=== PATIENT | male | born 2005 | race African-American/Black ===

== ENCOUNTER 2024-06-17 09:54 | Emergency (ER) | payer SELFPAY ==
[~2024-06-17] VITALS: Ht 154.9 cm; Wt 91.0 kg
[2024-06-17 11:07] VITALS: BP 142/91; PULSE 71; RESP 18; TEMP 98.2; O2SAT 100
[2024-06-17] MEDS: ACETAMINOPHEN 500 MG TAB PO ONE (12:06)
[2024-06-17] MEDS ORDERED: BACL10TA PO (12:07)
[2024-06-17] MEDS ORDERED: IBUP-1456 PO (12:07)
== END 2024-06-17 12:12 | disposition home or self-care (01) ==
LOC: EDBD 09:54 → ER 09:54
DX: S16.1XXA Strain of muscle, fascia and tendon at neck level, initial encounter (principal); S29.012A Strain of muscle and tendon of back wall of thorax, initial encounter; Z79.899 Other long term (current) drug therapy; V89.2XXA Person injured in unspecified motor-vehicle accident, traffic, initial encounter; Y93.I9 Activity, other involving external motion; Y92.488 Other paved roadways as the place of occurrence of the external cause; Y99.8 Other external cause status
CPT/HCPCS: 72040; 72070

== ENCOUNTER 2024-10-05 12:54 | Emergency (ER) | payer MEDICAID ==
[~2024-10-05] VITALS: Ht 185.4 cm; Wt 95.5 kg
[~2024-10-05 12:54] MED LIST: BACL10TA PO; IBUP-1456 PO
--- NOTE | 2024-10-05 14:08 | ED.PDOC ---
Altered Mental Status HPI Comments 19 year old male brought in by mother presents to the ED with chief complaint of ALOC. Mother reports that the patient started to experience confusion with associated non-verbal communication, inability to answer questions, and altered behavior since 5 days ago. Mother relays that she believes the patient may have taken some synthetic marijuana and is concerned as the patient has also stopped eating and drinking, appearing dehydrated. Mother states that she was referred to the crisis center by her campus administrator, however, the crisis center referred the patient to be seen in the ED due to the patient not being able to sign his own forms. Mother notes patient is able to follow commands and understands things being told to him, but he is unable to communicate back verbally and is generally confused. Mother denies any N/V/D, abdominal pain, dizziness, SOB, headache, or fever. Chief Complaint: ALOC Time Seen by MD: 14:03 Primary Care Provider: DENIES Reviewed Notes: Nurses Notes, Medications, Allergies Allergies: Coded Allergies: NO KNOWN ALLERGIES (Unverified , 06/17/24) Home Meds Active Scripts Baclofen (Baclofen) 10 Mg Tab, 10 MG PO BID, #20 TAB Prov:GENESIS HOWELL 06/17/24 Ibuprofen (Ibuprofen) 800 Mg Tab, 1 TAB PO TID, #30 TAB Prov:GENESIS HOWELL 06/17/24 Information Source: Patient, Relative (Mother) Mode of Arrival: Ambulatory Severity: Severe Timing: Days Duration: Since onset Prehospital treatment: None Quality: Change in Behavior, Confusion, Not Eating, Other (Non-verbal) Recent: Medication/Drug Abuse History of: None Past Medical History PAST MEDICAL HISTORY: Denies Surgical History: Denies all surgeries Family History Family History: Reviewed,noncontributory to illness Social History Smoker: Non-Smoker Alcohol: Denies ETOH Use Drugs: Marijuana Lives In: Home Constitutional: denies: chills, diaphoresis, fatigue, fever, malaise, sweats, weakness, others EENTM: denies: blurred vision, double vision, ear bleeding, ear discharge, ear drainage, ear pain, ear ringing, eye pain, eye redness, hearing loss, mouth pain, mouth swelling, nasal discharge, nose bleeding, nose congestion, nose pain, photophobia, tearing, throat pain, throat swelling, voice changes, others Respiratory: denies: cough, hemoptysis, orthopnea, SOB at rest, shortness of breath, SOB with excertion, stridor, wheezing, others Cardiovascular: denies: chest pain, dizzy spells, diaphoresis, Dyspnea on exertion, edema, irregular heart beat, left arm pain, lightheadedness, palpitations, PND, syncope, others Gastrointestinal: denies: abdomen distended, abdominal pain, blood streaked bowels, constipated, diarrhea, dysphagia, difficulty swallowing, hematemesis, melena, nausea, poor appetite, poor fluid intake, rectal bleeding, rectal pain, vomiting, others Genitourinary: denies: burning, dysuria, flank pain, frequency, hematuria, incontinence, penile discharge, penile sore, pain, testicle pain, testicle swelling, urgency, others Neurological: reports: others (Non-verbal, Confused); denies: dizziness, fainting, headache, left sided numbness, left sided weakness, numbness, paresthesia, pre-existing deficit, right sided numbness, right sided weakness, seizure, speech problems, tingling, tremors, weakness Musculoskeletal: denies: back pain, gout, joint pain, joint swelling, muscle pain, muscle stiffness, neck pain, others Integumetry: denies: bruises, change in color, change in hair/nails, dryness, laceration, lesions, lumps, rash, wounds, others Allergic/Immunocompromised: denies: Difficulty Healing, Frequent Infections, Hives, Itching, others Hematologic/Lymphatic: denies: anemia, blood clots, easy bleeding, easy bruising, swollen glands, others Endocrine: denies: excessive hunger, excessive sweating, excessive thirst, excessive urination, flushing, intolerance to cold, intolerance to heat, unexplained weight gain, unexplained weight loss, others Psychiatric: denies: anxiety, bipolar disorder, depression, hopeless, panic disorder, schizophrenia, sleepless, suicidal, others All Other Systems: Reviewed and Negative Physical Exam General Appearance: No Apparent Distress HEENT: PERRL/EOMI Neck: Full Range of Motion, Normal Inspection Respiratory: Lungs Clear, No Accessory Muscle Use, No Respiratory Distress, Normal Breath Sounds Cardiovascular: No Edema, No JVD, Regular Rate/Rhythm Breast Exam: Deferred Gastrointestinal: Non Tender, Soft Genitalia: Deferred Pelvic: Deferred Rectal: Deferred Extremities: Normal inspection, Normal range of motion, Non-tender, No pedal edema Neurologic: Alert (Nonverbal with me. Follows commands. Provides 1-2 word answers to mother.), No Motor Deficits Cerebellar Function: NOT DONE Reflexes: NOT DONE Skin: Dry, Normal Color, Warm Lymphatic: NOT DONE EKG EKG : Comments Sinus with sinus arrhythmia, rate 88, normal intervals, normal axis, possible old anteroseptal infarct, no ST/T changes. Was a procedure done? Was a procedure done?: No Differential Diagnosis (ALOC) Differential Diagnosis: Dehydration, Encephalopathy, Drug Overdose, ETOH Intoxication, Other (Psychosis, among others) X-Ray, Labs, Meds, VS Vital Signs Date Time Temp Pulse Resp B/P (MAP) Pulse Ox O2 Delivery O2 Flow Rate FiO2 10/05/24 20:40 72 15 129/79 (96) 97 10/05/24 19:30 75 15 99 Room Air* 0 21 10/05/24 19:30 98.4 71 25 132/71 (91) 97 98.4 10/05/24 18:00 89 17 142/90 (107) 97 10/05/24 17:00 82 12 137/74 (95) 99 10/05/24 16:05 89 10/05/24 16:00 88 24 139/88 (105) 98 10/05/24 15:10 75 15 99 Room Air* 0 21 10/05/24 15:00 74 15 142/82 (102) 97 10/05/24 14:54 97.8 75 15 135/82 (99) 99 97.8 10/05/24 14:02 97.5 75 18 133/101 (112) 100 97.5 10/05/24 14:02 75 18 100 Room Air 10/05/24 13:09 88 10/05/24 13:05 97.9 82 18 146/92 (110) 100 Lab Test 10/05/24 16:11 10/05/24 13:58 Range/Units Urine Color Yellow Yellow Urine Clarity Clear Clear Urine pH 7.0 5.0-9.0 Urine Specific [place] 1.025 1.001-1.035 Urine Protein Negative Negative Urine Ketones 3+ H Negative Urine Blood Negative Negative /uL Urine Nitrite Negative Negative Urine Bilirubin Negative Negative Urine Urobilinogen 8 H Negative mg/dL Urine Leukocyte Esterase Negative Negative /uL Urine RBC 2 0 - 3 /hpf Urine WBC 1 0 - 3 /hpf Urine Squamous Epithelial Cells None seen <5 /hpf Urine Bacteria None seen None Seen /hpf Urine Glucose Normal Normal mg/dL Urine Opiates Screen Neg NEGATIVE Urine Fentanyl Screen Neg NEGATIVE Urine Barbiturates Screen Neg NEGATIVE Urine Phencyclidine Screen Neg NEGATIVE Urine Amphetamines Screen Neg NEGATIVE Urine Benzodiazepines Screen Neg NEGATIVE Urine Cocaine Screen Neg NEGATIVE Urine Cannabinoids Screen Pos NEGATIVE White Blood Count 5.2 4.4-10.8 10^3/uL Red Blood Count 5.28 4.5-5.90 10^6/uL Hemoglobin 15.1 13.5-17.5 g/dL Hematocrit 44.5 41.0-53.0 % Mean Corpuscular Volume 84.4 80.0-100.0 fL Mean Corpuscular Hemoglobin 28.5 28.0-32.0 pg Mean Corpuscular Hemoglobin Concent 33.8 32.0-36.0 g/dL Red Cell Distribution Width 13.6 11.8-14.3 % Platelet Count 215 140-450 10^3/uL Mean Platelet Volume 9.2 6.9-10.8 fL Neutrophils (%) (Auto) 66.5 37.0-80.0 % Lymphocytes (%) (Auto) 17.9 10.0-50.0 % Monocytes (%) (Auto) 15.1 H 0.0-12.0 % Eosinophils (%) (Auto) 0.2 0.0-7.0 % Basophils (%) (Auto) 0.3 0.0-2.0 % Neutrophils # (Auto) 3.5 1.6-8.6 10 ^3/uL Lymphocytes # (Auto) 0.9 0.4-5.4 10 ^3/uL Monocytes # (Auto) 0.8 0-1.3 10 ^3/uL Eosinophils # (Auto) 0 0-0.8 10 ^3/uL Basophils # (Auto) 0 0-0.2 10 ^3/uL Nucleated Red Blood Cells 0.2 % Sodium Level 139 136-145 mmol/L Potassium Level 3.4 L 3.5-5.1 mmol/L Chloride Level 103 98-107 mmol/L Carbon Dioxide Level 26 20-31 mmol/L Anion Gap 10 5-15 Blood Urea Nitrogen 11 9-23 mg/dL Creatinine 1.20 0.700-1.30 mg/dL Glomerular Filtration Rate Calc 88 >90 mL/min BUN/Creatinine Ratio 9.2 L 10.0-20.0 Serum Glucose 85 74-106 mg/dL Calcium Level 10.3 8.7-10.4 mg/dL Total Bilirubin 1.0 0.2-1.0 mg/dL Aspartate Amino Transferase (AST) 32 13-40 U/L Alanine Aminotransferase (ALT) 38 7-40 U/L Alkaline Phosphatase 63 46-116 U/L Total Protein 7.3 5.7-8.2 g/dL Albumin 4.5 3.2-4.8 g/dL Salicylates Level < 3.0 -30 mg/dL Acetaminophen Level < 2.0 L 10.0-20.0 UG/ML Plasma/Serum Blood Alcohol < 3.0 <10 mg/dL Current Medications Medications (Trade) Dose Ordered Sig/Sophy Route Start Time Stop Time Status Last Admin Sodium Chloride 2,000 ml @ 1,000 mls/hr Q2H ONCE IV 10/05/24 14:00 10/05/24 15:59 DC 10/05/24 14:35 Potassium Chloride (Klor-Con Tablet) 40 meq ONCE ONCE PO 10/05/24 15:45 10/05/24 16:31 DC 10/05/24 16:45 X-Ray, Labs, Meds, VS Comment 19-year-old male with no significant past medical history brought in by mother for evaluation of confusion, decreased p.o. intake, and sudden decrease in verbal communication. Mother expresses concern that the patient's symptoms are due to synthetic marijuana or other drug use. Vitals remarkable for BP 146/92 Exam remarkable for nonverbal status with me. Patient does communicate with mother with 1 to two-word sentences. Patient able to follow commands. EKG sinus rhythm, sinus arrhythmia, no ST/T changes CBC, CMP, Tylenol, salicylate, alcohol level remarkable for potassium 3.4, no other abnormality of acute significance Urine drug screen and UA pending Patient treated with the following in the ED: 1 L 0.9 normal saline IV bolus, KCl 40 mEq p.o. Plan is for tele psych evaluation. Disposition will be per tele psych recommendations. 1830: Patient is medically cleared at this time and ready for tele psych evaluation. While awaiting psych evaluation, patient became restless. He was still able to answer yes or no questions. He answered no when asked if he felt suicidal or homicidal. He did not answer when asked if he was having auditory or visual hallucinations. Patient's mother was with him during his entire stay in the ED, and stated she did not want to wait with him any longer for tele psych evaluation. Patient is not currently on a hold, and also states he does not want to stay for psych evaluation. Patient and his mother signed out against medical advice. Patient's mother states she would like to take him for outpatient psychiatric evaluation and is comfortable taking him home. Patient and patient's mother were advised regarding the risks of leaving prior to psychiatric evaluation including persistent or worsening symptoms. They expressed understanding and insisted on leaving against medical advice. Time of 1ST Reevaluation: 15:03 Reevaluation 1ST: Unchanged Patient Education/Counseling: Diagnosis, Treatment Family Education/Counseling: Diagnosis, Treatment Departure 1 Departure Time of Disposition: 16:37 Impression: Primary Impression: Altered mental status Qualified Codes: R41.82 - Altered mental status, unspecified Disposition: 07 LEFT AGAINST MEDICAL ADVICE Condition: Fair Discharged With: Relative (Mother) Critical Care Note Critical Care Time?: No Stability Stability form required: No Heart Score Heart Score: Heart Score Response (Comments) Value History N/A 0 EKG N/A 0 Age N/A 0 Risk Factors N/A 0 Troponin N/A 0 Total 0 I personally scribed for MERCED ADAMS MD ([email or web address]) on 10/05/24 at 14:0 8. Electronically submitted by Abhinav Rubin ([email or web address]). I personally scribed for MERCED ADAMS MD ([email or web address]) on 10/05/24 at 18:40. Electronically submitted by Abhinav Rubin ([email or web address]). MERCED ADAMS MD Oct 05, 2024 14:08
[2024-10-05 14:24] LABS: Basophils # (auto) 0 10 ^3/uL (0-0.2); Basophils % (auto) 0.3 % (0.0-2.0); Eosinophils # (auto) 0 10 ^3/uL (0-0.8); Eosinophils % (auto) 0.2 % (0.0-7.0); Hematocrit 44.5 % (41.0-53.0); Hemoglobin 15.1 g/dL (13.5-17.5); Lymphocytes # (auto) 0.9 10 ^3/uL (0.4-5.4); Lymphocytes % (auto) 17.9 % (10.0-50.0); Mean Corpuscular Hemoglobin 28.5 pg (28.0-32.0); Mean Corpuscular Hgb Conc. 33.8 g/dL (32.0-36.0); Mean Corpuscular Volume 84.4 fL (80.0-100.0); Monocytes # (auto) 0.8 10 ^3/uL (0-1.3); Monocytes % (auto) 15.1 % (0.0-12.0); Neutrophils # (auto) 3.5 10 ^3/uL (1.6-8.6); Neutrophils % (auto) 66.5 % (37.0-80.0); Nucleated Red Blood Cells % 0.2 %; Platelet Count (auto) 215 10^3/uL (140-450); Red Blood Cells 5.28 10^6/uL (4.5-5.90); Red Cell Distribution Width 13.6 % (11.8-14.3); White Blood Cell 5.2 10^3/uL (4.4-10.8)
[2024-10-05 14:34] LABS: Alanine Aminotransferase 38 U/L (7-40); Albumin 4.5 g/dL (3.2-4.8); Alkaline Phosphatase 63 U/L (46-116); Anion Gap 10 (5-15); Aspartate Aminotransferase 32 U/L (13-40); BUN/Creatinine Ratio 9.2 (10.0-20.0); Blood Urea Nitrogen 11 mg/dL (9-23); Calcium 10.3 mg/dL (8.7-10.4); Carbon Dioxide 26 mmol/L (20-31); Chloride 103 mmol/L (98-107); Glucose 85 mg/dL (74-106); Sodium 139 mmol/L (136-145)
[2024-10-05 14:35] LABS: Total Protein 7.3 g/dL (5.7-8.2)
[2024-10-05] MEDS: SODIUM CHLORIDE 0.9% 2,000 ML IV ONE (14:35)
[2024-10-05 14:37] LABS: Blood Alcohol < 3.0 mg/dL (<10); Potassium 3.4 mmol/L (3.5-5.1)
[2024-10-05 14:38] LABS: Acetaminophen < 2.0 UG/ML (10.0-20.0); Salicylate < 3.0 mg/dL (-30)
[2024-10-05 15:10] VITALS: PULSE 75; RESP 15; O2SAT 99
[2024-10-05 16:13] LABS: Urine Bacteria None Seen /hpf (None Seen)
[2024-10-05 16:35] LABS: Urine Blood Negative /uL (Negative); Urine Clarity Clear (Clear); Urine Color Yellow (Yellow); Urine Protein, UAD Negative (Negative); Urine Specific Gravity 1.025 (1.001-1.035); Urine Squamous Epithelial Cell None Seen /hpf (<5); Urine Urobilinogen 8 mg/dL (Negative); Urine WBC 1 /hpf (0 - 3)
[2024-10-05 16:43] LABS: Amphetamine Screen, Urine Neg (NEGATIVE); Barbiturate Scree,Urine Neg (NEGATIVE); Benzodiazephine Screen, Urine Neg (NEGATIVE); Cannabinoid Screen, Urine Pos (NEGATIVE); Cocaine Screen, Urine Neg (NEGATIVE); Opiate Scree,Urine Neg (NEGATIVE); Phencyclidine Screen, Urine Neg (NEGATIVE)
[2024-10-05] MEDS: POTASSIUM CHL 20 Meq TABLET PO ONE (16:45)
[2024-10-05 19:30] VITALS: PULSE 75; RESP 15; TEMP 98.4; O2SAT 99
[2024-10-05 20:40] VITALS: BP 129/79; PULSE 72; RESP 15; O2SAT 97
--- NOTE | 2024-10-12 09:10 | ECG ---
[facility] Test Date: 2024-10-05 Test Time: 13:09:10 Pat Name: WILEY YANES Department: ER Room: Gender: M [employer]: CC : 2005 Requested By: MERCED SERRANO Order Number: [id number] Reading MD: Ethan Hartman Measurements Intervals [place] Rate: 88 P: 64 SC: 139 QRS: 58 QRSD: 83 T: 31 QT: 346 QTc: 419 Interpretive Statements Sinus arrhythmia Probable anteroseptal infarct, old Electronically Signed On 10-13-2024 9:37:45 PST by Ethan Hartman Please click the below link to view image of tracing.
== END 2024-10-05 20:43 | disposition left against medical advice (07) ==
LOC: ER 12:54
DX: R41.82 Altered mental status, unspecified (principal); F15.90 Other stimulant use, unspecified, uncomplicated; Z79.1 Long term (current) use of non-steroidal anti-inflammatories (NSAID); Z79.899 Other long term (current) drug therapy
CPT/HCPCS: 36415; 80053; 80307; 80320; 80329; 81001; 85025; 93005; 96360; 99285; J7030